=== PATIENT | female | born 1985 | race Caucasian/White ===

== ENCOUNTER 2018-03-24 08:52 | Emergency (ER) | payer OTHER, SELFPAY ==
[2018-03-24 08:58] VITALS: BP 139/91; PULSE 103; RESP 16; TEMP 37; O2SAT 100
--- NOTE | 2018-03-24 09:34 | W.ED.GENAD ---
Discharge Plan Disposition Patient Disposition: HOME Discharge Details Chief Complaint: Nk/Back Pain Clinical Impression: Lumbar back pain with radiculopathy affecting right lower extremity Primary Care Provider: Anel Kidd ED Provider: Fran Kennedy Home Meds and New Rx's Prescriptions: New prednisone 20 mg tablet 40 mg PO DAILY 4 Days Qty: 8 RF: 0 cyclobenzaprine 5 mg tablet 5 mg PO Q8H Qty: 10 RF: 0 No Action acetaminophen 325 MG tablet 325 - 650 mg PO PRN RF: 0 PNV cmb#95-ferrous fumarate-FA [] 1 EACH tablet 1 ea PO DAILY Qty: 90 RF: 2 levonorgestrel [Mirena] 20 mcg/24 hr (5 years) Intrauterine Device RF: 0 Discharge Instructions Instructions: Lumbar Disc Herniation (ED) Additional Instructions: Take ibuprofen 600 mg every 6 hours as needed for pain over the next week. Take Tylenol 650 mg every 6 hours as needed for pain over the next week. Please contact your primary care physician to arrange follow-up. Call on Sunday. You may need additional diagnostic testing if symptoms persist. Return to the ER for any worsening or new concerning symptoms. Referrals: Anel Kidd, WING MAILER MACHINE OPERATOR [Primary Care Provider] - Medical Decision Making Medical Records 9:35 --32-year-old female with remote history of lumbar back pain requiring partial discectomy, here with 1 week of right lumbosacral back pain with paresthesias into her posterior lateral right leg. No signs/symptoms of cauda equina including no bowel or bladder dysfunction and no saddle anesthesia. Patient is already taking ibuprofen. I will give additional Tylenol. Will place lidocaine patch and provide Flexeril as well as a short course of prednisone. 10:00 -- Patient reassessed and improved symptoms. Requesting discharge. I explained the patient that she will need to follow-up with her primary care physician early this week and may need additional diagnostic testing should symptoms not improved today. Patient understands importance of timely follow-up and that she should return immediately should she have any worsening or new concerning symptoms. HPI General Date/Time Provider Initiated Documentation: 03/24/18 09:00. Limitations to Documentation: no limitations. Information obtained by: patient. HPI Narrative: 32-year-old female with history of back pain in the past requiring partial discectomy lumbar spine remotely, presents with chief complaint of back pain. Patient notes over the past 1 week she has had waxing and waning right lower back pain. Today she sneezed and had sudden worsening of her pain. Pain is now sharp and severe. Patient has pain that radiates into her right posterior lateral leg. She also notes some paresthesias of her leg extending into her right foot. It is worse with certain positions and with prolonged sitting. She has been taking ibuprofen and Tylenol. She took ibuprofen 800 mg and Tylenol 325 mg this morning. No associated fevers. No bowel or bladder dysfunction Related Data Home Medications Medication Instructions Recorded Confirmed acetaminophen 325 - 650 mg PO PRN tab-cap 02/25/13 03/24/18 PNV cmb#95-ferrous fumarate-FA 1 ea PO DAILY #90 ea 02/02/16 03/24/18 [Prenavite] cyclobenzaprine 5 mg PO Q8H #10 tab 03/24/18 levonorgestrel [Mirena] 03/24/18 prednisone 40 mg PO DAILY 4 Days #8 tab 03/24/18 Previous Rx's Medication Instructions Recorded cyclobenzaprine 5 mg PO Q8H #10 tab 03/24/18 prednisone 40 mg PO DAILY 4 Days #8 tab 03/24/18 Allergies Allergy/AdvReac Type Severity Reaction Status Date / Time No Known Allergies Allergy Unverified 03/24/18 09:01 General Stated Complaint: Nk/Back Pain YAMIL: 4 Review of Systems Review of Systems All systems reviewed & are unremarkable except as noted in HPI and below Genitourinary Comments: No incontinence Musculoskeletal Reports as per HPI and Reports back pain PFSH Family History Mother Cerebrovascular accident Medical History BV Contraceptive management Social History Smoking/Tobacco Use Status: Former Tobacco Use Surgical History section (08/28/12) Exam Const General: cooperative and no acute distress HENMT Head: normocephalic and atraumatic Mouth: moist mucous membranes Eyes Conjunctivae: normal conjunctivae Sclera: normal sclerae EOM: EOM intact bilaterally Neck Neck: trachea midline Resp Auscultation: clear to auscultation bilaterally, no rales, no rhonchi and no wheezes Cardio Jugular venous pressure: no JVD Rate: regular rate and not tachycardic Rhythm: regular rhythm GI Palpation: soft, not firm, no guarding, no masses, not rigid and nontender Back/Spine/Pelvis Thoracic/Lumbar Spine: paraspinal tenderness and other (No midline tenderness) Skin General skin exam: no rashes or lesions noted Neuro General: alert, awake, oriented x3, tone normal, no focal motor deficits, deep tendon reflexes 2+ bilaterally and other (Decreased sensation with paresthesias right posterior lateral leg extending to her foot, no saddle anesthesia) Extrem General: no edema Psych Appearance: grossly normal Mental Status: mental status grossly normal Speech and Movement: speech and movement normal Course Vital Signs Temperature 37 C 03/24/18 08:58 Pulse 103 H 03/24/18 08:58 Respiratory Rate 16 03/24/18 08:58 Blood Pressure 139/91 H 03/24/18 08:58 Pulse Oximetry 100 03/24/18 08:58 Temperature 37 C 03/24/18 08:58 Temperature Source Skin 03/24/18 08:58 Pulse 103 H 03/24/18 08:58 Respiratory Rate 16 03/24/18 08:58 Respiratory Effort Non-Labored 03/24/18 08:58 Blood Pressure 139/91 H 03/24/18 08:58 Blood Pressure Position Sitting 03/24/18 08:58 Pulse Oximetry 100 03/24/18 08:58 Oxygen Delivery Method Room Air 03/24/18 08:58 Oxygen Flow Rate 0 03/24/18 08:58 Pain Level 10 03/24/18 09:20
[2018-03-24] MEDS: predniSONE 20 MG TAB 40 MG PO (09:38)
[2018-03-24] MEDS: Cyclobenzaprine 10 MG TAB PO (09:38)
--- NOTE | 2018-03-24 09:41 | ED.GENADUL_ITS ---
Discharge Plan Disposition Patient Disposition: HOME Discharge Details Chief Complaint: Nk/Back Pain Clinical Impression: Lumbar back pain with radiculopathy affecting right lower extremity Primary Care Provider: Anel Kidd ED Provider: Fran Kennedy Home Meds and New Rx's Prescriptions: New prednisone 20 mg tablet 40 mg PO DAILY 4 Days Qty: 8 RF: 0 cyclobenzaprine 5 mg tablet 5 mg PO Q8H Qty: 10 RF: 0 No Action acetaminophen 325 MG tablet 325 - 650 mg PO PRN RF: 0 PNV cmb#95-ferrous fumarate-FA [] 1 EACH tablet 1 ea PO DAILY Qty: 90 RF: 2 levonorgestrel [Mirena] 20 mcg/24 hr (5 years) Intrauterine Device RF: 0 Discharge Instructions Instructions: Lumbar Disc Herniation (ED) Additional Instructions: Take ibuprofen 600 mg every 6 hours as needed for pain over the next week. Take Tylenol 650 mg every 6 hours as needed for pain over the next week. Please contact your primary care physician to arrange follow-up. Call on Sunday. You may need additional diagnostic testing if symptoms persist. Return to the ER for any worsening or new concerning symptoms. Referrals: Anel Kidd, COOLING ROOM ATTENDANT [Primary Care Provider] - Medical Decision Making Medical Records 9:35 --32-year-old female with remote history of lumbar back pain requiring partial discectomy, here with 1 week of right lumbosacral back pain with paresthesias into her posterior lateral right leg. No signs/symptoms of cauda equina including no bowel or bladder dysfunction and no saddle anesthesia. Patient is already taking ibuprofen. I will give additional Tylenol. Will place lidocaine patch and provide Flexeril as well as a short course of prednisone. 10:00 -- Patient reassessed and improved symptoms. Requesting discharge. I explained the patient that she will need to follow-up with her primary care physician early this week and may need additional diagnostic testing should symptoms not improved today. Patient understands importance of timely follow- up and that she should return immediately should she have any worsening or new concerning symptoms. HPI General Date/Time Provider Initiated Documentation: 03/24/18 09:00 . Limitations to Documentation: no limitations . Information obtained by: patient . HPI Narrative: 32-year-old female with history of back pain in the past requiring partial discectomy lumbar spine remotely, presents with chief complaint of back pain. Patient notes over the past 1 week she has had waxing and waning right lower back pain. Today she sneezed and had sudden worsening of her pain. Pain is now sharp and severe. Patient has pain that radiates into her right posterior lateral leg. She also notes some paresthesias of her leg extending into her right foot. It is worse with certain positions and with prolonged sitting. She has been taking ibuprofen and Tylenol. She took ibuprofen 800 mg and Tylenol 325 mg this morning. No associated fevers. No bowel or bladder dysfunction Related Data Home Medications Medication Instructions Recorded Confirmed acetaminophen 325 - 650 mg PO PRN tab-cap 02/25/13 03/24/18 PNV cmb#95-ferrous fumarate-FA 1 ea PO DAILY #90 ea 02/02/16 03/24/18 [Prenavite] cyclobenzaprine 5 mg PO Q8H #10 tab 03/24/18 levonorgestrel [Mirena] 03/24/18 prednisone 40 mg PO DAILY 4 Days #8 tab 03/24/18 Previous Rx's Medication Instructions Recorded cyclobenzaprine 5 mg PO Q8H #10 tab 03/24/18 prednisone 40 mg PO DAILY 4 Days #8 tab 03/24/18 Allergies Allergy/AdvReac Type Severity Reaction Status Date / Time No Known Allergies Allergy Unverified 03/24/18 09:01 General Stated Complaint: Nk/Back Pain YAMIL: 4 Review of Systems Review of Systems All systems reviewed & are unremarkable except as noted in HPI and below Genitourinary Comments: No incontinence Musculoskeletal Reports as per HPI and Reports back pain PFSH Family History Mother Cerebrovascular accident Medical History BV Contraceptive management Social History Smoking/Tobacco Use Status: Former Tobacco Use Surgical History section (08/28/12) Exam Const General: cooperative and no acute distress HENMT Head: normocephalic and atraumatic Mouth: moist mucous membranes Eyes Conjunctivae: normal conjunctivae Sclera: normal sclerae EOM: EOM intact bilaterally Neck Neck: trachea midline Resp Auscultation: clear to auscultation bilaterally, no rales, no rhonchi and no wheezes Cardio Jugular venous pressure: no JVD Rate: regular rate and not tachycardic Rhythm: regular rhythm GI Palpation: soft, not firm, no guarding, no masses, not rigid and nontender Back/Spine/Pelvis Thoracic/Lumbar Spine: paraspinal tenderness and other (No midline tenderness) Skin General skin exam: no rashes or lesions noted Neuro General: alert, awake, oriented x3, tone normal, no focal motor deficits, deep tendon reflexes 2+ bilaterally and other (Decreased sensation with paresthesias right posterior lateral leg extending to her foot, no saddle anesthesia) Extrem General: no edema Psych Appearance: grossly normal Mental Status: mental status grossly normal Speech and Movement: speech and movement normal Course Vital Signs Temperature 37 C 03/24/18 08:58 Pulse 103 H 03/24/18 08:58 Respiratory Rate 16 03/24/18 08:58 Blood Pressure 139/91 H 03/24/18 08:58 Pulse Oximetry 100 03/24/18 08:58 Temperature 37 C 03/24/18 08:58 Temperature Source Skin 03/24/18 08:58 Pulse 103 H 03/24/18 08:58 Respiratory Rate 16 03/24/18 08:58 Respiratory Effort Non-Labored 03/24/18 08:58 Blood Pressure 139/91 H 03/24/18 08:58 Blood Pressure Position Sitting 03/24/18 08:58 Pulse Oximetry 100 03/24/18 08:58 Oxygen Delivery Method Room Air 03/24/18 08:58 Oxygen Flow Rate 0 03/24/18 08:58 Pain Level 10 03/24/18 09:20
[2018-03-24] MEDS: Lidocaine 5% Patch 1 PATCH (09:44)
--- NOTE | 2018-03-25 08:46 | CMPROGNOTE_ITS ---
Care Management Progress Note 03/25/18-Pt seen on 03/24/[address] Fabián santiago for Right Lumbosacral back pain with parethesias into posterior lateral, right leg. F/U request within one week faxed to [facility].
== END 2018-03-24 10:17 | disposition home or self-care (01) ==
PROVIDERS: Emergency Provider Student in an Organized Health Care Education/Training Program; PCP Emergency Medicine
DX: M54.16 Radiculopathy, lumbar region (principal)
CPT/HCPCS: 99283; J7512

== ENCOUNTER 2018-06-04 13:14 | Outpatient (CLI) | payer MEDICAID, SELFPAY ==
--- NOTE | 2018-06-04 13:45 | DI.RAD_ITS ---
SYMPTOMS/DIAGNOSIS: LOW BACK PAIN NOT IMPROVING WITH PHYSICAL THERAPY, M54.16 LUMBAR SPINE: AP, lateral and bilateral oblique views. There is normal alignment of the lumbar spine. No spondylolysis or spondylolisthesis is seen. There is mild disc space narrowing at L2-L3 and L4-L5. There are endplate osteophytes throughout the lumbar spine. Mild degenerative changes of the facets are seen at L5-S1. No acute fractures or subluxations are seen. Incidental note is made of an intrauterine device in the pelvis. IMPRESSION: Mild degenerative changes of the lumbar spine.
== END 2018-06-04 13:34 ==
PROVIDERS: PCP Emergency Medicine; Visit Provider Nurse Practitioner Family
DX: M54.5 Low back pain (principal); M54.16 Radiculopathy, lumbar region; M51.16 Intervertebral disc disorders with radiculopathy, lumbar region
CPT/HCPCS: 72110

== ENCOUNTER 2018-06-18 01:56 | Outpatient (CLI) | payer MEDICAID, SELFPAY ==
--- NOTE | 2018-06-18 09:37 | DI.MRI_ITS ---
SYMPTOMS/DIAGNOSIS: CONTINUED RIGHT-SIDED RADICULOPATHY X 3 MOS, LBP, M54.16, S/P DISCECTOMY IN 2012 LUMBAR MRI: The study was carried out according to the usual protocol. The vertebral bodies are well maintained. There is no evidence of a significant bony abnormality. The alignment is normal. There is no evidence of spondylosis. The conus is unremarkable. The lower dorsal cord is intact. The filum terminale appears unremarkable. Note is made of degenerative disc disease with diminished signal and disc narrowing involving L2 through S1. Also, the visualized abdominal structures are intact. At L1-2, there is no evidence of a disc herniation. There is no evidence of spinal stenosis. At L2-3, a disc bulge is demonstrated and there is an apparent central annular tear, which in combination with facet joint DJD results in mild left and very mild right lateral recess narrowing and mild left neural foraminal narrowing without significant narrowing of the central canal. At L3-4, a diffuse disc bulge is noted with superimposed broad-based disc herniation, which combined with facet joint DJD results in mild right and very mild left neural foraminal narrowing with severe narrowing of the bilateral lateral recesses and moderate central canal stenosis. At L4-5, disc-osteophyte complex prominence is noted and there is a central annular tear, which combined with facet joint degenerative changes results in mild to moderate right and moderate left neural foraminal narrowing with moderate right and severe left lateral recess stenosis and mild central canal stenosis. At L5-S1, disc-osteophyte complex prominence is noted as well and again noted is facet joint DJD with mild to moderate bilateral foraminal narrowing with moderate right and severe left lateral recess stenosis and mild central spinal stenosis is again seen. If there is further specific clinical question, further assessment with MRI could be considered. SUMMARY: Evidence of multilevel degenerative disc disease. There are disc herniations and multilevel spinal stenosis. Please see the above discussion.
--- NOTE | 2018-06-19 15:44 | DI.VRAD_ITS ---
EXAM: MR Lumbar Spine Without Contrast. EXAM DATE/TIME: 06/18/2018 9:35 AM CLINICAL HISTORY: 32 years old, female; Signs and symptoms; Other: RT sided radiculopathy TECHNIQUE: Multiplanar magnetic resonance images of the lumbar spine without intravenous contrast. COMPARISON: CR XR lumbar spine complete 06/04/2018 1:28 PM FINDINGS: Vertebral body heights are intact. Alignment is maintained. No pars defect is identified. The conus is unremarkable in appearance, with its tip at the T12-L1 level. There are varying degrees of disc desiccation indicating intervertebral disc degeneration. The visualized abdominal structures appear unremarkable. L1-2: No significant disc displacement. L2-3: Diffuse bulge with a central annular tear combining with facet arthrosis to lead to very mild right and mild left neural foraminal narrowing with very mild right and mild left lateral recess narrowing, without significant central canal stenosis. L3-4: Diffuse bulge with a superimposed broad-based central protrusion combining with facet arthrosis to lead to mild right and very mild left neural foraminal narrowing with severe narrowing of the bilateral lateral recesses and moderate central canal stenosis. L4-5: Disc osteophyte complex with a central annular tear combining with facet arthrosis to lead to mild to moderate right and moderate left neural foraminal narrowing with moderate right and severe left lateral recess narrowing and mild central canal stenosis. L5-S1: Disc osteophyte complex combining with facet arthrosis to lead to mild to moderate bilateral neural foraminal narrowing with moderate right and severe left lateral recess narrowing and mild central canal stenosis. If surgery is considered, recommend level confirmation. IMPRESSION: Multilevel disc desiccation indicating intervertebral disk degeneration with disc displacements as described. Dictated and Authenticated by: Hitesh Sandoval MD. Ordering:RICHIE Real MD
== END 2018-06-18 02:16 ==
PROVIDERS: PCP Emergency Medicine; Visit Provider Nurse Practitioner Family
DX: M51.16 Intervertebral disc disorders with radiculopathy, lumbar region (principal); M54.16 Radiculopathy, lumbar region; M48.07 Spinal stenosis, lumbosacral region
CPT/HCPCS: 72148

== ENCOUNTER 2018-07-23 10:04 | Outpatient (CLI) | payer MEDICAID, SELFPAY ==
--- NOTE | 2018-07-23 10:32 | DI.RAD_ITS ---
SYMPTOMS/DIAGNOSIS: LUMBAR RADICULOPATHY, LUMBAR EPIDURAL STEROID INJECTION PAIN CLINIC: Fluoroscopy Time: 19.6 Fluoroscopy was utilized by Dr. Alvarez during the performance of a lumbar epidural steroid injection. Please refer to the procedure report for complete details.
--- NOTE | 2018-07-23 11:07 | PDOC.PAIN ---
Pain Clinic Procedure Note Current Active Problems Problem Status Onset Lumbar radiculitis Acute Lumbar Epidural Steroid Injection Procedure Note COMMENTS: Previous left L5-S1 laminectomy and current disc herniations at right L3-L4 and right L5-S1. I did review the notes from her spine surgeon and her recent lumbar spine MRI. She is on Ibuprofen. Per THAI, she does not need to hold Ibuprofen prior to the LESI, but needs to hold it for 24 hours after this procedure. She was informed on this. She denies current RIGOBERTO MEDINA has been referred to the [facility] for lumbar epidural steroid injection. The patient was greeted by the nurse who verified patients name and . Patient was then taken to the fluoroscopy suite. The patient was interviewed and the medial record reviewed. There were no medical, pharmacologic, radiographic, or other structural contraindications to attempting fluoroscopically guided lumbar epidural steroid injection. Risks and expected side effects as well as potential benefits of the procedure were reviewed and voiced concerns expressed. The patient consent form was signed and witnessed. Standard patient time-out procedure was performed. The patient was placed in the prone position on the fluoroscopy table and automated blood pressure cuff and pulse oximeter applied. The skin entry point for entering/approaching the epidural space at the right L3-L4 interlaminar space and marked. Following thorough chlorhexadine preparation of the skin and draping and 1% lidocaine infiltration of the skin entry point and subcutaneous tissues, a 18 gauge Touhy needle was placed under fluoroscopic guidance and with loss of resistance technique into the epidural space. Needle tip placement and depth were aided and confirmed by fluoroscopy. There was no paresthesia or return of blood or CSF through the needle. 1 cc's of Omnipaque 240 was injected with clear epidural spread confirmed with fluoroscopy. 80mg depomedrol was injected. There was not any unusual discomfort expressed by RIGOBERTO MEDINA. Patient's vital signs were stable throughout the procedure and were as recorded in nursing records. Follow up plans and appointments were discussed with patient. Post procedure instruction was given as documented in nursing records and having met discharge criteria and was discharged from the [facility]. COMMENTS: If this procedure is effective, it can be completed up to 3 times per 12 months.
[2018-07-23 11:17] VITALS: BP 138/64; PULSE 90; RESP 18; O2SAT 100
[2018-07-23] MEDS: Omnipaque 240 MG/ML 50 ML BTL IJ (11:18)
[2018-07-23] MEDS: methylPREDNISolone ACETATE 80 MG/ML VIAL IM (11:19)
== END 2018-07-23 10:24 ==
PROVIDERS: PCP Emergency Medicine; Visit Provider Preventive Medicine Occupational Medicine
DX: M54.16 Radiculopathy, lumbar region (principal)
CPT/HCPCS: 62323; 72100; J1040; Q9967

== ENCOUNTER 2018-09-25 12:33 | Outpatient (CLI) | payer MEDICAID, SELFPAY ==
--- NOTE | 2018-09-25 12:26 | DI.RAD_ITS ---
SYMPTOMS/DIAGNOSIS: LEFT CHEST PAIN, R07.89 PA AND LATERAL CHEST: Comparison is made with [id number]. The cardiac and mediastinal contours have a normal appearance. The lungs are well inflated and clear. No infiltrate, effusion or pneumothorax is seen. The spine is unremarkable. IMPRESSION: Negative chest x-ray.
[2018-09-25 13:25] LABS: Abs Immature Grans 0.02 k/cumm (0.0-0.09); Absolute Basophil Count 0.04 k/cumm (0.0-0.2); Absolute Eosinophil Count 0.09 k/cumm (0.0-0.7); Absolute Lymphocyte Count 1.61 k/cumm (1.2-3.4); Absolute Monocyte Count 0.45 k/cumm (0.11-0.7); Absolute Neutrophil Count 5.86 k/cumm (1.2-6.7); Basophils % 0.5; Eosinophils % 1.1; HCT 43.9 % (36.0-46.0); Immature Grans % 0.2; Mean Corp. HGB Concentration 34.2 g/dL (32.0-36.0); Mean Corpuscular Hemoglobin 31.6 pg (27.0-33.0); Mean Corpuscular Volume 92.4 fL (80-95); Mean Platelet Volume 9.4 fL (8.0-11.0); Monocytes % 5.6; Neutrophils % 72.6; Platelet Count 245 x1000/uL (130-400); RBC 4.75 m/cumm (4.00-5.20); RBC Distribution Width 13.1 % (11.7-14.6); White Blood Cell Count 8.07 k/cumm (4.4-10.8)
[2018-09-25 13:48] LABS: C-Reactive Protein 0.24 mg/dL (0.0-0.3); NT-proBNP 87 pg/mL
[2018-09-25 13:57] LABS: D-Dimer 375 ng/mlFEU (<500)
[2018-09-25 13:58] LABS: Troponin I < 0.02 ng/mL (0.00-0.06)
== END 2018-09-25 12:53 ==
PROVIDERS: PCP Emergency Medicine; Visit Provider Emergency Medicine
DX: R07.89 Other chest pain (principal); I50.9 Heart failure, unspecified
CPT/HCPCS: 36415; 71046; 83880; 84484; 85025; 85379; 86140

== ENCOUNTER 2021-06-23 14:46 | Outpatient (REF) | payer MEDICAID, SELFPAY ==
--- NOTE | 2021-06-23 13:20 | PAPFT_PTH ---
PATIENT: Chela Stephen LOC: [facility] U#:[id number] AGE/SX: 35/F ROOM: RE06/23/[address]: COLLIN Torres : 1985 BED: DIS: 06/23/2021 SPEC #: [id number] RECD: 06/27/21 12:48 STATUS: DARRIAN RETom #: [id number] [place]: 06/23/21 13:[address]: Addie Armenta DEPT: [facility] Cytology RECD BY: Inga Leon ENTERED: 06/27/21 12:48 SP TYPE: PAPFT OTHR DR: Phani Toussaint, Tissues: 1 - CX/ENDOCX FOR PAP SMEARS Procedures: PAP THIN PREP/UVM Screening HPV DNA PROBE Comments: [id number]
== END 2021-06-23 14:47 | disposition home or self-care (01) ==
LOC: LBN 14:46
PROVIDERS: PCP Emergency Medicine; Visit Provider Nurse Practitioner Family
DX: Z12.4 Encounter for screening for malignant neoplasm of cervix (principal); Z11.51 Encounter for screening for human papillomavirus (HPV)
CPT/HCPCS: 88142; 87624

== ENCOUNTER 2021-06-28 03:04 | Outpatient (CLI) | payer MEDICAID, SELFPAY ==
[2021-06-28 12:46] LABS: Anion Gap 9.1 mmol/L (3-11); BUN 12 mg/dL (7-18); CO2 25.9 mmol/L (21.0-32.0); CREATININE 0.8 mg/dL (0.55-1.02); Calcium 8.9 mg/dL (8.5-10.1); Calculated LDL 71 mg/dL (<100); Chloride 105 mmol/L (98-107); Cholesterol 167 mg/dL (<200); Glucose 103 mg/dL (74-106); HDL Cholesterol 43 mg/dL (40-60); Sodium 140 mmol/L (136-145); Triglyceride 266 mg/dL (<150)
== END 2021-06-28 03:05 | disposition home or self-care (01) ==
LOC: LBO 03:05
PROVIDERS: PCP Nurse Practitioner Family; Visit Provider Nurse Practitioner Family
DX: Z13.220 Encounter for screening for lipoid disorders (principal); Z13.228 Encounter for screening for other metabolic disorders; Z00.00 Encounter for general adult medical examination without abnormal findings
CPT/HCPCS: 36415; 80048; 80061

== ENCOUNTER 2022-10-16 11:20 | Emergency (ER) | payer MEDICAID, SELFPAY ==
[2022-10-16 11:24] VITALS: BP 128/75; PULSE 94; RESP 18; TEMP 36.5; O2SAT 97
--- NOTE | 2022-10-16 11:39 | ED.GENADUL_ITS ---
Discharge Plan Disposition Patient Disposition: Home Condition: Good Discharge Details Clinical Impression: Laceration of toe, Right knee sprain Primary Care Provider: Addie Armenta ED Provider: Ann Zhang Home Meds and New Rx's Prescriptions: Continued multivitamin Tablet 1 tab PO DAILY B-complex with vitamin C [Super B Complex-Vitamin C] Tablet 1 tab PO DAILY omeprazole 20 mg capsule,delayed release(DR/EC) 20 mg PO DAILY Qty: 90 3RF Discharge Instructions Instructions: Knee Sprain (ED), Laceration (ED) Additional Instructions: Please keep wound clean, dry, covered. Please continue with the postop shoe to allow this to heal for the next week. After that, you may transition to Band- Aid to. Please monitor for signs infection including redness, warmth, drainage, increased pain, fever/chills. If you develop these or other new/worsening symptom please seek care urgently once again. As we discussed the laceration you sustained it was very superficial much like a bad blister. This was tacked down to allow the underlying skin to heal. This may come off naturally, please do not pick or pull at this. Please return in 10 days for reevaluation and suture removal. Referrals: Addie Armenta, JOHANN [Primary Care Provider] - Discharge Data Discharge Date/Time-TO BE ENTERED AT DEPARTURE: 10/16/22 14:01 Medical Decision Making Patient is a pleasant 36-year-old female presenting today with chief complaint of toe laceration and right knee pain. She reports that prior to arrival she caught her flip-flop on set a rock steps and suffered a laceration to the plantar side of the great toe. Also suffered a rotational injury to the right knee. Tetanus is up-to-date. She denies any numbness or tingling. No significant deeper pain into the great toe. Is primarily concerned for the laceration which is not currently bleeding after the patient applied some pressure to it. She denies striking her head, no other injury at the time of the incident. On exam, patient appears nontoxic. She is 2+ distal pulses. Intact capillary refill. She has a curvilinear laceration to the plantar surface of the right great toe which appears to be flap in nature as the tissue has a fairly devascularized appearance at the site of the laceration. I am concerned about the viability of this given the color change. Sensation is intact distal to it she has full range of motion of the ankle. No pain to palpation elsewhere about the foot or ankle. No pain over the proximal fibula. No focal pain in the knee. She is full range of motion. No effusion. Ligamentously intact with varus and valgus stress testing as well as a anterior posterior drawer testing. Pain seems to be fairly vague and diffuse in the right knee. Patient is quite anxious about the repair of the right great toe. Her history exam is not consistent with fracture. I am concerned that flap may not be viable and would like to have a deeper look at this. We will apply some let initially and then complete a digital block. Patient I discussed risk/benefits as well as expected procedural steps and patient agrees with this plan. Digital block performed with plain Lidocaine, patient tolerated this well, par ticularly with the LET. Good anesthetic effect reached. Was able to lift the flap, the entirety is superfical without deep tissue involvement. Wound was copiously irrigated with no FB or debris noted. Patient and I discusseed treatment options. With the raw tissue under this area, and thee location, we discussed tacking down the flap with sutures, knowing it is likely non-viable, to help witth healing, prevent infection, help with discomfort and prevent the flap from catching on clothing or when walking. We discussed risk/benefits and alterantives and patient wishes to proceed. Please see procedure note. She tolerated this well. Advised she monitored for sxs of infection. Return precautions discussed. Encouraged she return in 10-12 days for reevaluation and suture removal. Will fit with postop shoe to help with mobility and keep strain off of the wound. Also fit with KELLEY to support the knee. Encouraged PHYLICIA. All of their questions and concerns were addressed, she is in agreement with this plan. HPI General Date/Time Provider Initiated Documentation: 10/16/22 11:39 . Limitations to Documentation: no limitations . Information obtained by: patient and RN notes reviewed . History of Present Illness 36 year old F presents to the emergency department with the chief complaint of right great toe laceration, right knee pain, described as mild, with intensity rated at 2. Quality is described as aching, and is localized to the right and lower extremity. Patient reports no radiation. Patient s tarted experiencing this minute(s) and it has been constant. Immobilization improves symptom(s), Movement worsens symptoms (weight bearing on great toe) . Patient notes no other symptoms.. Patient did receive the following treatments prior to arrival, none Related Data Home Medications Medication Instructions Recorded Confirmed B-complex with vitamin C (Super B 1 tab PO DAILY 05/23/19 10/16/22 Complex-Vitamin C tablet) multivitamin 1 tab PO DAILY 05/23/19 10/16/22 omeprazole 20 mg capsule,delayed 20 mg PO DAILY #90 caps 09/18/22 10/16/22 release Previous Rx's Medication Instructions Recorded omeprazole 20 mg capsule,delayed 20 mg PO DAILY #90 caps 09/18/22 release Allergies Allergy/AdvReac Type Severity Reaction Status Date / Time mold Allergy Unknown Verified 10/16/22 11:45 pollen extracts Allergy Unknown Verified 10/16/22 11:45 Hay Fever Allergy Unknown Uncoded 10/16/22 11:45 General Stated Complaint: Laceration YAMIL: 4 Review of Systems Constitutional Constitutional: Reports as per HPI, Denies chills and Denies fever(s) Musculoskeletal Musculoskeletal: Reports as per HPI Integumentary/Breasts Skin/Breast: Reports as per HPI Neurologic Neurologic: Reports as per HPI, Denies sensory deficit and Denies paresthesias PFSH All Active Problems (Updated 10/16/22 @ 13:33 by DOREEN Clemens) Laceration of toe (Acute) Right knee sprain (Acute) Urge incontinence (Chronic) GERD (gastroesophageal reflux disease) (Chronic) Medical History Depression Herniated nucleus pulposus Hx of carpal tunnel syndrome Surgical History H/O discectomy History of section (08/28/12) History of lumbar laminectomy for spinal cord decompression with facetectomy and foraminotomy lumbar Family History (Updated 09/06/22 @ 13:49 by Addie Armenta NP) Mother , at 55 from stroke Stroke Atrial fibrillation Cervical cancer Father No problems noted. Son No problems noted. Daughter No problems noted. Daughter No problems noted. Maternal Grandfather No problems noted. Maternal Grandmother Pancreatic cancer Diabetes Heart disease Paternal Grandfather No problems noted. Paternal Grandmother No problems noted. Social History (Updated 09/06/22 @ 16:25 by Lydia Kelley) Smoking/Tobacco Use Status: Former Tobacco Use tobacco type: cigarettes Quit Date: 07/02/10 Tobacco: How many years used: 2 Quit status: has quit before Second Hand Exposure: No Smoking risk assessment performed?: Yes Alcohol Intake: current Alcohol Intake frequency: holidays/special occasions only Alcohol type: wine Drug use: Never Substance use type: does not use Caregiver/Support person: No Household members: spouse and children Housing: house Number of Children: 3 Communication Needs: None Do you need help understanding health information?: Never current occupation: stay at home mom Pets and animals: Yes Pets and animals: cat(s), dog(s), fish, hamster(s), horse(s) and farm animals Sexually active: Yes Do you think of yourself as: straight/heterosexual Current gender identity: female What is your relationship status?: How often do you talk on the phone with friends or family?: three or more times per week How often do you get together with friends or relatives?: twice per week How often do you attend jain or episcopalian services?: decline to answer Do you belong to any clubs or organized social groups?: yes Panel score (0-1 are the most socially isolated patients): 3 What type of physical activity do you participate in: walking Duration: 15-30 minutes/day Frequency: 3-4 times per week Ericka/Sabianism: No preference Special ericka needs: No Seatbelt use: always Helmet use: Yes Helmet use: always Drive intox or ride w/intox non emergency services ambulance driver: No Do you feel safe at home: Yes Do you feel safe in your relationship?: Yes Female Reproductive History Menstrual control method: other (Vasectomy) History History 3 Para 3 Hx # Term Pregnancies Multiple births Hx # Pregnancies Ectopic pregnancies AB induced Hx Number of Living Children 3 AB spontaneous Exam Const General: cooperative, healthy appearing, comfortable, no acute distress and well developed Nutritional Appearance: well nourished and overweight Orientation: alert and awake Resp Effort & Inspection: normal respiratory effort, able to speak in complete sentences and no respiratory distress Cardio Rate: regular rate Rhythm: regular rhythm Skin Trauma: laceration (flap great toe) Neuro General: patient alert and patient awake Cognition: normal cognition Speech: speech normal Gait: normal gait Sensory Exam: no sensory deficits noted Extrem Knee images: 1. Generalized discomfort in the right knee. No focal pain. Full ROM. No effusion, warmth or soft tissue swelling. Ligamentously intact with varus/valgus, anterior/posterior drawer testing. 2+ distal pulses, sensation intact. Ankle/foot/toe images: 1. Flap laceration that is through the dermis wih raw tissue under. intact capillary refill. Good ROM. No FB or debris noted. No deeper involvement. Overlying flap is pale and appears non-viable. Psych Appearance: grossly normal and well kempt Mental Status: mental status grossly normal Speech and Movement: speech and movement normal Course Vital Signs Vital signs: Vital Signs Temperature 36.5 C 10/16/22 11:24 Pulse 94 H 10/16/22 11:24 Respiratory Rate 18 10/16/22 11:24 Blood Pressure 128/75 10/16/22 11:24 Pulse Oximetry 97 10/16/22 11:24 Temperature 36.5 C 10/16/22 11:24 Pulse 94 H 10/16/22 11:24 Respiratory Rate 18 10/16/22 11:24 Respiratory Effort Normal 10/16/22 11:27 Blood Pressure 128/75 10/16/22 11:24 Blood Pressure Position Sitting 10/16/22 11:24 Pulse Oximetry 97 10/16/22 11:24 Oxygen Delivery Method Room Air 10/16/22 11:24 Oxygen Flow Rate 0 10/16/22 11:24 Pain Level 2 10/16/22 11:30 Comment Pressure on toe level 8 for pain 10/16/22 11:24 Procedures Laceration Laceration 1: Site: lower extremity Side (If applicable): right Size (cm): 5 Description: flap Depth: simple, single layer Local Anesthetic: Lidocaine 1% Amount of anesthesia used (mL): 6 Pre-repair: wound explored, irrigated extensively and deep structures intact Skin layer closed with: nylon Size (cm): 4-0 Number of sutures: 3 Technique: simple, interrupted
[2022-10-16] MEDS: Lidocaine/Epinephri/Tetracaine Topical Gel 3 ML TP (12:00)
[2022-10-16] MEDS: Lidocaine 1% Pres-Free 5 ML VIAL ×2 (13:19)
== END 2022-10-16 14:01 | disposition home or self-care (01) ==
PROVIDERS: Emergency Provider Physician Assistant; PCP Nurse Practitioner Family
DX: S91.111A Laceration without foreign body of right great toe without damage to nail, initial encounter (principal); W18.49XA Other slipping, tripping and stumbling without falling, initial encounter; E66.3 Overweight; S83.91XA Sprain of unspecified site of right knee, initial encounter
CPT/HCPCS: 99283

== ENCOUNTER 2022-10-26 10:57 | Emergency (ER) | payer MEDICAID, SELFPAY ==
--- NOTE | 2022-10-26 10:59 | W.ED.GENAD ---
Discharge Plan Disposition Patient Disposition: Home Discharge Details Clinical Impression: Encounter for removal of sutures Primary Care Provider: Addie Armenta ED Provider: Bryant Austin Home Meds and New Rx's Prescriptions: Continued multivitamin Tablet 1 tab PO DAILY B-complex with vitamin C [Super B Complex-Vitamin C] Tablet 1 tab PO DAILY omeprazole 20 mg capsule,delayed release(DR/EC) 20 mg PO DAILY Qty: 90 3RF Discharge Instructions Additional Instructions: You were seen in the emergency department to have your stitches removed. Your wound appears to be healing well. If you have any concerns about how your wound is healing if you develop fevers or any foul-smelling drainage please return to the emergency department. Medical Decision Making This is an overall quite well-appearing normothermic and not tachycardic 36-year-old female with well-healing Right great toe laceration that is healing well. No fevers nor chills. No foul-smelling drainage. No pain out of proportion to suggest necrotizing soft tissue infection. We will proceed with empiric trial of expectant outpatient management. I advised patient that her wound is at the weakest today and that she should return if her wound opened up again. Patient heart return indications and was discharged from the emergency department. Suture removal was completed by nursing. HPI General Date/Time Provider Initiated Documentation: 10/26/22 10:59. HPI Narrative: This is a 36-year-old female arriving via private vehicle to have sutures removed from her right great toe. Patient reports that her sutures were placed 10 days ago. She has had no foul-smelling drainage nor any fevers nor chills. She feels that her laceration is healing well. She denies any other complaints. Related Data Home Medications Medication Instructions Recorded Confirmed B-complex with vitamin C (Super B 1 tab PO DAILY 05/23/19 10/26/22 Complex-Vitamin C tablet) multivitamin 1 tab PO DAILY 05/23/19 10/26/22 omeprazole 20 mg capsule,delayed 20 mg PO DAILY #90 caps 09/18/22 10/26/22 release Previous Rx's Medication Instructions Recorded omeprazole 20 mg capsule,delayed 20 mg PO DAILY #90 caps 09/18/22 release Allergies Allergy/AdvReac Type Severity Reaction Status Date / Time mold Allergy Unknown Verified 10/16/22 11:45 pollen extracts Allergy Unknown Verified 10/16/22 11:45 Hay Fever Allergy Unknown Uncoded 10/16/22 11:45 General YAMIL: 4 PFSH All Active Problems (Updated 10/26/22 @ 11:14 by Bryant Austin MD) Laceration of toe (Acute) Right knee sprain (Acute) Encounter for removal of sutures (Acute) Urge incontinence (Chronic) GERD (gastroesophageal reflux disease) (Chronic) Medical History Depression Herniated nucleus pulposus Hx of carpal tunnel syndrome Surgical History H/O discectomy History of section (08/28/12) History of lumbar laminectomy for spinal cord decompression with facetectomy and foraminotomy lumbar Family History (Updated 09/06/22 @ 13:49 by Addie Armenta NP) Mother , at 55 from stroke Stroke Atrial fibrillation Cervical cancer Father No problems noted. Son No problems noted. Daughter No problems noted. Daughter No problems noted. Maternal Grandfather No problems noted. Maternal Grandmother Pancreatic cancer Diabetes Heart disease Paternal Grandfather No problems noted. Paternal Grandmother No problems noted. Social History (Updated 09/06/22 @ 16:25 by Lydia Kelley) Smoking/Tobacco Use Status: Former Tobacco Use tobacco type: cigarettes Quit Date: 07/02/10 Tobacco: How many years used: 2 Quit status: has quit before Second Hand Exposure: No Smoking risk assessment performed?: Yes Alcohol Intake: current Alcohol Intake frequency: holidays/special occasions only Alcohol type: wine Drug use: Never Substance use type: does not use Caregiver/Support person: No Household members: spouse and children Housing: house Number of Children: 3 Communication Needs: None Do you need help understanding health information?: Never current occupation: stay at home mom Pets and animals: Yes Pets and animals: cat(s), dog(s), fish, hamster(s), horse(s) and farm animals Sexually active: Yes Do you think of yourself as: straight/heterosexual Current gender identity: female What is your relationship status?: How often do you talk on the phone with friends or family?: three or more times per week How often do you get together with friends or relatives?: twice per week How often do you attend lutheran or mu-ism services?: decline to answer Do you belong to any clubs or organized social groups?: yes Panel score (0-1 are the most socially isolated patients): 3 What type of physical activity do you participate in: walking Duration: 15-30 minutes/day Frequency: 3-4 times per week Ericka/Episcopalian: No preference Special ericka needs: No Seatbelt use: always Helmet use: Yes Helmet use: always Drive intox or ride w/intox forklift driver: No Do you feel safe at home: Yes Do you feel safe in your relationship?: Yes Female Reproductive History Menstrual control method: other (Vasectomy) History History 3 Para 3 Hx # Term Pregnancies Multiple births Hx # Pregnancies Ectopic pregnancies AB induced Hx Number of Living Children 3 AB spontaneous Exam Narrative Exam Narrative: General: Well-appearing in no acute distress speaking in complete sentences. Head: Normocephalic, atraumatic. Eye: Pupils equal, round reactive to light. Extraocular eye movements intact. No conjunctival injection. No scleral icterus. Ear, nose, mouth, throat: Grossly normal inspection. Normal voice, handling secretions normally. Neck: Trachea midline. Cardiovascular: Well-perfused distal extremities. Respiratory: Nonlabored respiration. Gastrointestinal: Nondistended abdomen. Musculoskeletal: On the plantar aspect of the right great toe there is a well-healing crescentic approximately 3 cm laceration with 3 blue sutures visible. No signs of surrounding infection. No purulent drainage. No bleeding. Skin: Normal for age and race, grossly normal temperature and turgor. No acute rash. Neurologic: Alert and appropriate, no apparent acute deficits. Psychiatric: Mood and manner are appropriate. Grooming and personal hygiene are appropriate.
[2022-10-26 11:01] VITALS: BP 128/78; PULSE 76; RESP 20; TEMP 36.3; O2SAT 99
== END 2022-10-26 11:26 | disposition home or self-care (01) ==
LOC: ER 11:20
PROVIDERS: Emergency Provider Emergency Medicine; PCP Nurse Practitioner Family
DX: S91.111D Laceration without foreign body of right great toe without damage to nail, subsequent encounter (principal); Z48.02 Encounter for removal of sutures

== ENCOUNTER 2023-03-13 17:42 | Outpatient (REF) | payer MEDICAID, SELFPAY ==
--- NOTE | 2023-03-13 16:30 | PAPFT_PTH ---
PATIENT: Chela Stephen LOC: [facility] U#:[id number] AGE/SX: 37/F ROOM: RE03/13/[address]: Bharti Song NP : [id number] BED: DIS: 03/13/2023 SPEC #: [id number] RECD: 03/14/23 12:46 STATUS: DARRIAN RETom #: [id number] [place]: 03/13/23 16:[address]: Bharti Song DEPT: [facility] Cytology RECD BY: Inga Leon ENTERED: 03/14/23 12:46 SP TYPE: PAPFT MARIAM DR: Addie Armenta, [facility] Tissues: 1 - CX/ENDOCX FOR PAP SMEARS Procedures: PAP THIN PREP/U[facility] Screening HPV DNA PROBE Comments: [id number] (CHLAMYDIA/GC)
[2023-03-15 15:04] LABS: Chlamydia Result Negative (Negative); GC Result Negative (Negative)
== END 2023-03-13 17:43 | disposition home or self-care (01) ==
LOC: LBN 17:42
PROVIDERS: PCP Nurse Practitioner Family; Visit Provider Nurse Practitioner Family
DX: R10.2 Pelvic and perineal pain (principal); Z11.3 Encounter for screening for infections with a predominantly sexual mode of transmission; Z12.4 Encounter for screening for malignant neoplasm of cervix; N89.8 Other specified noninflammatory disorders of vagina; N76.0 Acute vaginitis; Z11.51 Encounter for screening for human papillomavirus (HPV)
CPT/HCPCS: 87491; 87591; 88142; 87480; 87510; 87624; 87660

== ENCOUNTER 2023-03-14 08:46 | Outpatient (CLI) | payer MEDICAID, SELFPAY ==
[2023-03-14 08:17] LABS: HCT 42.2 % (36.0-46.0); HGB 14.3 g/dL (11.2-15.7); MCH 31.2 pg (27.0-33.0); MCHC 33.9 % (32.0-36.0); MCV 92 fL (80-95); MPV 8.7 fL (8.0-11.0); Platelet Count 242 10^3/uL (130-400); RBC 4.59 10^6/uL (3.93-5.22); RDW 13.6 % (11.7-14.6); RDW-SD 46.5 fL; WBC 8.65 10^3/uL (4.4-10.8)
[2023-03-14 08:57] LABS: Anion Gap 7.1 mmol/L (3-11); BUN 8 mg/dL (7-18); CO2 25.9 mmol/L (21.0-32.0); CREATININE 0.8 mg/dL (0.55-1.02); Chloride 101 mmol/L (98-107); Estimated GFR 97.87 (mL/min/1.73m2); Glucose 99 mg/dL (74-106); Sodium 134 mmol/L (136-145)
[2023-03-15 10:22] LABS: Hepatitis C Ab w Rflx HCV PCR Negative (Negative)
[2023-03-15 10:36] LABS: HIV-1/2 Ag & Ab Screen Negative (Negative)
[2023-03-15 10:55] LABS: Syphilis Serology (RPR) Negative (Negative)
[2023-03-16 10:02] LABS: HSV Type 1 Ab, IgG Negative (Negative); HSV Type 2 Ab, IgG Negative (Negative)
== END 2023-03-14 08:47 | disposition home or self-care (01) ==
LOC: LBO 08:50
PROVIDERS: PCP Nurse Practitioner Family; Visit Provider Nurse Practitioner Family
DX: R10.2 Pelvic and perineal pain (principal)
CPT/HCPCS: 36415; 80048; 85027; 86803; 87389; 86592; 86695; 86696

== ENCOUNTER 2024-02-01 02:34 | Outpatient (CLI) | payer MEDICAID, SELFPAY ==
[2024-02-01 13:18] LABS: Hemoglobin A1C 5.1 % (<5.7)
[2024-02-01 13:57] LABS: Anion Gap 10.8 mmol/L (3-11); BUN 9 mg/dL (7-18); CO2 24.2 mmol/L (21.0-32.0); CREATININE 0.8 mg/dL (0.55-1.02); Calcium 9.8 mg/dL (8.5-10.1); Calculated LDL 109 mg/dL (<100); Chloride 102 mmol/L (98-107); Cholesterol 179 mg/dL (<200); Estimated GFR 97.26 (mL/min/1.73m2); Glucose 91 mg/dL (74-106); HDL Cholesterol 53 mg/dL (40-60); Potassium 3.8 mmol/L (3.5-5.1); Sodium 137 mmol/L (136-145); TSH (W/Ref FT4) 2.54 uIU/mL (0.36-3.74); Triglyceride 88 mg/dL (<150)
[2024-02-01 23:20] LABS: HBs Antibody, Quant 5.8 mIU/mL (See Note); Hep B Surface Ab Negative (See Note); Hepatitis B Core Antibody Negative (Negative); Hepatitis B Surface Antigen Negative (Negative)
== END 2024-02-01 02:35 | disposition home or self-care (01) ==
PROVIDERS: PCP Nurse Practitioner Family; Visit Provider Nurse Practitioner Family
DX: Z00.00 Encounter for general adult medical examination without abnormal findings (principal); E66.01 Morbid (severe) obesity due to excess calories; Z68.41 Body mass index [BMI] 40.0-44.9, adult; Z11.59 Encounter for screening for other viral diseases
CPT/HCPCS: 36415; 80048; 80061; 86704; 86706; 87340; 83036; 84443